=== PATIENT | male | born 1960 | race Caucasian/White ===

== ENCOUNTER → 2018-03-29 | Outpatient (CLI) | payer OTHER ==
[~2018-03-29] MED LIST: BENA1TAB58 PO; BENA20TA64 PO; OLME1TAB73 PO
[2018-03-29 08:57] LABS: PLATELET COUNT, AUTOMATED 182 K/uL (150-450)
[2018-03-29 09:12] LABS: LDL CHOLESTEROL 89 mg/dl
== END ==
LOC: LAB 08:34
PROVIDERS: ATTEND Internal Medicine
DX: Z12.5 Encounter for screening for malignant neoplasm of prostate (principal); Z00.00 Encounter for general adult medical examination without abnormal findings; I10 Essential (primary) hypertension
CPT/HCPCS: 36415; 82040; 82247; 82310; 82374; 82435; 82465; 82565; 82728; 82947; 83540; 83550; 83718; 84075; 84132; 84153; 84155; 84295; 84443; 84450; 84460; 84478; 84520; 85025